=== PATIENT | female | born 1965 | race Caucasian/White ===

== ENCOUNTER → 2021-08-07 | Outpatient (CLI) | payer OTHER ==
--- NOTE | 2021-08-07 14:55 | KCIC ---
3 views of the left shoulder without comparison for left shoulder pain, grinding for one month, no kn own injury. FINDINGS: No fracture, dislocation, or acute osseous abnormality. Mild glenohumeral osteoarthritis. N o significant abnormalities of the acromioclavicular joint. Calcified granuloma in the left upper liz g. IMPRESSION: 1. No acute osseous abnormality. Electronically signed by: Curry Oropzea MD (08/07/2021 2:52 PM) [id number]
== END ==
LOC: KCIC 09:39
PROVIDERS: ATTEND Family Medicine
DX: M19.012 Primary osteoarthritis, left shoulder (principal); J84.10 Pulmonary fibrosis, unspecified
CPT/HCPCS: 73030